=== PATIENT | male | born 1985 | race Caucasian/White ===

== ENCOUNTER 2018-04-28 08:56 | Emergency (ER) | payer OTHER ==
[2018-04-28] MEDS ORDERED: DIPHTH/TETANUS/ACEL. PERTUSSIS IM ONE (09:00)
[2018-04-28] MEDS ORDERED: IOPAMIDOL 76% 100 ML INFUS BTL 100 ML ONE (09:15)
[2018-04-28] MEDS ORDERED: fentaNYL CITR 100 MCG/2 ML AMP IVP ONE ×3 (09:15→11:15)
[2018-04-28 09:29] LABS: PLATELET COUNT, AUTOMATED 304 K/uL (150-450)
[2018-04-28] MEDS ORDERED: NS(*) 0.9% 1000 ML BAG 1,000 ML IV ONE (09:30)
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
[2018-04-28 09:40] LABS: INR 1.04
[2018-04-28] MEDS ORDERED: ceFAZolin(*) 2GM/D5W 50ML 50 ML IVPB ONE (10:15)
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
[2018-04-28] MEDS ORDERED: KETAMINE HCL-NS 50 MG/5 ML SYR IVP ONE (11:20)
[2018-04-28] MEDS ORDERED: EMS NS 0.9%(*) 1000 ML BAG 1,000 ML IV ONE (11:40)
[2018-04-28 11:50] VITALS: BP 125/89
--- NOTE | 2018-04-28 11:59 | RADIOLOGY IMAGING REPORT ---
FACILITY: [facility] PATIENT NAME: Ruby Bell : 1985 MR: [id number] V: [id number] EXAM DATE: ORDERING PHYSICIAN: MIKEY ARCE TECHNOLOGIST: Location: [facility] [place] Patient: Ruby Bell : 1985 Visit/Account:[id number] Date of Sevice: 04/28/2018 Exam type: CHEST PA LAT History: chest tube Comparison: CT chest abdomen pelvis performed today Findings: Supine AP and lateral views of the chest demonstrate interval placement of a left chest tube distal t ip projects over the superior medial aspect the left thorax. Previous noted left pneumothorax is no longer visible although study is somewhat limited due to the supine nature the study. There are hypo ventilatory changes in the lungs which may be related to limited inspiratory effort. Cardiac silhoue tte appears normal IMPRESSION: 1. New left-sided chest tube noted with distal tip projecting over the superior medial aspect the le ft thorax. Previously noted left pneumothorax which was best depicted on the CT chest abdomen and pe lvis is no longer seen although the study is limited due to the supine nature. Report Dictated By: Carmencita Lindquist MD at 04/28/2018 11:48 AM Report E-Signed By: Carmencita Lindquist MD at 04/28/2018 11:54 AM WSN:[email or web address]
== END 2018-04-28 12:10 | disposition short-term general hospital (02) ==
LOC: ER 09:32
DX: S82.201C Unspecified fracture of shaft of right tibia, initial encounter for open fracture type IIIA, IIIB, or IIIC (principal); S82.401 Unspecified fracture of shaft of right fibula; S42.92XA Fracture of left shoulder girdle, part unspecified, initial encounter for closed fracture; S27.0XXA Traumatic pneumothorax, initial encounter; S22.32XA Fracture of one rib, left side, initial encounter for closed fracture; V68.5XXA Driver of heavy transport vehicle injured in noncollision transport accident in traffic accident, initial encounter
CPT/HCPCS: 32551; 70450; 71045; 71046; 71260; 72125; 72170; 73030; 73552; 73562; 74177; 80320; 81001; 82150; 83605; 83690; 85025; 85610; 85730; 86850; 86900; 86901; 90471; 90715; 96361; 96365; 96375; 96376; 99285; A7048; C1758; J3010; J3490; J7030; Q9967; 82040; 82247; 82310; 82374; 82435; 82565; 82947; 84075; 84132; 84155; 84295; 84450; 84460; 84520; J0690

== ENCOUNTER → 2018-04-28 | Outpatient (CLI) | payer OTHER | LOC: AMB 08:06 | PROVIDERS: ATTEND Nurse Practitioner | DX: M79.662 Pain in left lower leg (principal); M79.661 Pain in right lower leg; M25.512 Pain in left shoulder; M79.629 Pain in unspecified upper arm; M79.643 Pain in unspecified hand; R53.1 Weakness; T68.XXXA Hypothermia, initial encounter; S81.011A Laceration without foreign body, right knee, initial encounter; V48.5XXA Car driver injured in noncollision transport accident in traffic accident, initial encounter; Y92.411 Interstate highway as the place of occurrence of the external cause | CPT/HCPCS: A0425; A0433 ==

== ENCOUNTER → 2018-04-28 | Outpatient (REF) | LOC: AMB 11:24 | PROVIDERS: ATTEND Nurse Practitioner | DX: Z02.9 Encounter for administrative examinations, unspecified (principal) ==